=== PATIENT | male | born 1995 | race Caucasian/White ===

== ENCOUNTER 2022-09-18 08:21 | Emergency (ER) | payer MEDICAID ==
[~2022-09-18] VITALS: Ht 170.2 cm; Wt 77.1 kg
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
--- NOTE | 2022-09-18 08:40 | NUR ---
at bedside for exam.
[2022-09-18] MEDS ORDERED: IBUPROFEN 600 MG TABLET ONE (08:47)
--- NOTE | 2022-09-18 08:49 | NUR ---
Patient medicated as per order for c/o neck pain.
[2022-09-18] MEDS ORDERED: IBUPROFEN 600 MG TABLET PO ONE (09:00)
--- NOTE | 2022-09-18 09:10 | NUR ---
Patient sitting up in bed, awaiting aerospace technician.
--- NOTE | 2022-09-18 10:04 | NUR ---
Patient has returned from CT, awaiting results, states pain is aorund 4/10.
--- NOTE | 2022-09-18 10:35 | NUR ---
Patient continues to await provider re-eval, no change in primary assessment, will continue to monitor.
--- NOTE | 2022-09-18 12:11 | NUR ---
Patient continues to await CT reading. No c/o at this time.
[2022-09-18] MEDS ORDERED: NAPR-1192 PO (12:33)
--- NOTE | 2022-09-18 12:38 | NUR ---
ACI GIVEN, REMAINS STABLE FOR DISCHARGE HOME.
[2022-09-18 12:39] VITALS: BP 133/80
== END 2022-09-18 12:39 | disposition admitted as inpatient to this hospital (09) ==
LOC: ER 08:21
DX: S16.1XXA Strain of muscle, fascia and tendon at neck level, initial encounter (principal); Z79.1 Long term (current) use of non-steroidal anti-inflammatories (NSAID); V29.99XA Rider (driver) (passenger) of other motorcycle injured in unspecified traffic accident, initial encounter; Y93.89 Activity, other specified; Y92.89 Other specified places as the place of occurrence of the external cause; Y99.8 Other external cause status
CPT/HCPCS: 72125; A4663

== ENCOUNTER 2023-01-09 08:04 | Emergency (ER) | payer MEDICAID ==
[~2023-01-09] VITALS: Ht 170.2 cm; Wt 81.6 kg
[~2023-01-09 08:04] MED LIST: NAPR-1192 PO
[2023-01-09] MEDS ORDERED: KETOROLAC TROMETHAMINE 15 MG INJ IVP ONE (09:00)
[2023-01-09] MEDS ORDERED: METOCLOPRAMIDE HCL 10 MG/2 ML VIAL IV ONE (09:00)
[2023-01-09 09:09] LABS: BASOPHILS % (AUTO) 0.6 % (0.0-2.0); EOSINOPHILS # (AUTO) 0.2 K/uL (0.0-0.7); EOSINOPHILS % (AUTO) 2.6 % (0.0-7.0); HEMATOCRIT 44.8 % (36.7-47.1); HEMOGLOBIN 15.6 g/dL (12.5-16.3); LYMPHOCYTES % (AUTO) 26.7 % (20.5-51.5); MEAN CORPUSCULAR HEMOGLOBIN 30.3 uug (23.8-33.4); MEAN CORPUSCULAR HGB CONC 35 g/dL (32.5-36.3); MEAN CORPUSCULAR VOLUME 87.3 fL (73.0-96.2); MONOCYTES # (AUTO) 0.6 K/uL (0.1-1.30); MONOCYTES % (AUTO) 7.5 % (0.0-11.0); NEUTROPHILS # (AUTO) 4.7 K/uL (1.8-8.9); NEUTROPHILS % (AUTO) 62.6 % (38.5-71.5); PLATELET COUNT (AUTO) 220 K/uL (152-348); RED BLOOD CELL COUNT(AUTO) 5.13 MIL/uL (4.06-5.63); RED CELL DISTRIBUTION WIDTH 12.4 % (12.1-16.2); WHITE BLOOD COUNT (AUTO) 7.6 K/uL (3.6-10.2)
[2023-01-09] MEDS ORDERED: KETOROLAC TROMETHAMINE 15 MG INJ ONE (09:15)
[2023-01-09] MEDS ORDERED: METOCLOPRAMIDE HCL 10 MG/2 ML VIAL ONE (09:16)
[2023-01-09 09:26] LABS: DIFFERENTIAL COMMENT 1
[2023-01-09] MEDS ORDERED: IV NORMAL SALINE 1000 ML BAG IV ONE (09:30)
[2023-01-09 09:58] LABS: CALCIUM 9.5 mg/dL (8.5-10.1); CARBON DIOXIDE 26 mmol/L (21-32); CHLORIDE 103 mmol/L (98-107); CREATININE 1.5 mg/dL (0.6-1.3); GLUCOSE 101 mg/dL (74-106); POTASSIUM 4.5 mmol/L (3.5-5.1); SODIUM SERUM 136 mmol/L (136-145); UREA NITROGEN, BLOOD 12 mg/dL (7-18)
[2023-01-09 10:07] LABS: ALANINE AMINOTRANSFERASE 66 U/L (16-63); ALBUMIN 4.2 g/dL (3.4-5.0); ALKALINE PHOSPHATASE 85 U/L (50-136); ASPARTATE AMINOTRANSFERASE 26 U/L (15-37); BILIRUBIN,DIRECT 0.2 mg/dL (0.0-0.2); BILIRUBIN,TOTAL 0.8 mg/dL (0.2-1.0); LIPASE 66 U/L (73-393); TOTAL PROTEIN, SERUM 7.5 g/dL (6.4-8.2)
[2023-01-09 10:22] LABS: *BILIRUBIN,URIN NEGATIVE (NEGATIVE); *BLOOD, URINE 2+ (NEGATIVE); *CLARITY,URINE CLEAR (CLEAR); *COLOR,URINE YELLOW (YELLOW); *KETONES,URINE NEGATIVE (NEGATIVE); *PROTEIN,URINE NEGATIVE (NEGATIVE); *UROBILINOGEN,URINE 0.2 E.U./dl (NORMAL); LEUKOCYTE ESTERASE ,URINE NEGATIVE (NEGATIVE); NITRITE, URINE NEGATIVE (NEGATIVE); UGLUCOSE NEGATIVE (NEGATIVE)
[2023-01-09] MEDS ORDERED: TAMS-3 PO (11:13)
[2023-01-09] MEDS ORDERED: IBUP-1957 PO (11:13)
[2023-01-09 11:27] LABS: RBC,URINE 20-50 /HPF (0-3)
[2023-01-09 11:28] LABS: BACTERIA,URINE FEW /HPF (NONE SEEN); SQUAMOUS EPITHELIAL CELL,UR FEW /HPF (NONE SEEN); WBC,URINE 0-3 /HPF (0-3)
[2023-01-09 14:04] VITALS: BP 112/74; TEMP 98; O2SAT 100
== END 2023-01-09 11:30 | disposition home or self-care (01) ==
LOC: ER 08:04
DX: N20.2 Calculus of kidney with calculus of ureter (principal); N13.30 Unspecified hydronephrosis; R07.89 Other chest pain; Z79.1 Long term (current) use of non-steroidal anti-inflammatories (NSAID); Z79.899 Other long term (current) drug therapy
CPT/HCPCS: 99285; 74176; 96374; 71045; 96361; 96375; 80076; 80048; 81001; 83690; 85025; 85730; 84484; 36415; 93005; 87086; J1885; J2765; J7040; A4606; A4663